=== PATIENT | female | born 1945 | race Caucasian/White ===

== ENCOUNTER → 2017-09-29 | Outpatient (CLI) | payer MEDICARE, OTHER ==
[~2017-09-29] MED LIST: ASPIR 8181 MG PO; BENAZEPRIL HCL40 MG PO; CARVEDILOL6.25 MG PO; DILTIAZEM 24HR240 M2 PO; MULTIVITAMINS1 EAC7 PO
== END ==
LOC: M.RAD 10:38
DX: Z12.31 Encounter for screening mammogram for malignant neoplasm of breast (principal)

== ENCOUNTER → 2019-01-10 | Outpatient (CLI) | payer MEDICARE, OTHER | LOC: M.MRI 10:57 | DX: M41.86 Other forms of scoliosis, lumbar region (principal); M51.36 Other intervertebral disc degeneration, lumbar region; M48.061 Spinal stenosis, lumbar region without neurogenic claudication; M12.88 Other specific arthropathies, not elsewhere classified, other specified site; M89.38 Hypertrophy of bone, other site ==

== ENCOUNTER → 2019-07-13 | Outpatient (CLI) | payer MEDICARE, OTHER | LOC: M.MRI 11:01 | DX: S83.281A Other tear of lateral meniscus, current injury, right knee, initial encounter (principal); M17.11 Unilateral primary osteoarthritis, right knee; M25.461 Effusion, right knee; M71.21 Synovial cyst of popliteal space [Baker], right knee; X58.XXXA Exposure to other specified factors, initial encounter; Y93.89 Activity, other specified; Y92.89 Other specified places as the place of occurrence of the external cause; Y99.8 Other external cause status ==

== ENCOUNTER → 2019-08-10 | Outpatient (CLI) | payer MEDICARE, OTHER | LOC: M.LAB 04:03 | DX: E87.6 Hypokalemia (principal) ==

== ENCOUNTER → 2020-01-29 | Outpatient (CLI) | payer MEDICARE, OTHER | LOC: M.RAD 09:33 | PROVIDERS: ATTEND Internal Medicine | DX: Z12.31 Encounter for screening mammogram for malignant neoplasm of breast (principal) ==

== ENCOUNTER → 2020-02-14 | Outpatient (CLI) | payer MEDICARE, OTHER | LOC: M.MRI 14:12 | PROVIDERS: ATTEND Orthopaedic Surgery | DX: S83.281A Other tear of lateral meniscus, current injury, right knee, initial encounter (principal); M17.11 Unilateral primary osteoarthritis, right knee; M71.21 Synovial cyst of popliteal space [Baker], right knee; M25.461 Effusion, right knee; X58.XXXA Exposure to other specified factors, initial encounter; Y93.89 Activity, other specified; Y92.89 Other specified places as the place of occurrence of the external cause; Y99.8 Other external cause status ==

== ENCOUNTER 2020-03-07 09:22 | Observation (INO) | payer MEDICARE, OTHER ==
[2020-03-04 11:02] LABS: ABSOLUTE BASOPHILS 0.1 thou/uL (0.0-0.2); ABSOLUTE EOSINOPHILS 0.4 thou/uL (0.0-0.7); ABSOLUTE LYMPHOCYTES 2.1 thou/uL (0.8-5.3); ABSOLUTE MONOCYTES 0.8 thou/uL (0.0-1.2); ABSOLUTE NEUTROPHILS 3.6 thou/uL (1.6-8.1); BASOPHILS 1.3 %; EOSINOPHILS 5.1 %; HEMATOCRIT 34.3 % (37.0-47.0); HEMOGLOBIN 11.6 gm/dL (12.0-15.0); LYMPHOCYTES 29.7 %; MCH 29.6 pg (26.0-34.0); MCV 87.1 fL (80.0-100.0); MONOCYTES 11.4 %; MPV 7.8 fl. (7.2-11.1); NUCLEATED RBCS 0 /100WBC; PLATELET COUNT* 352 thou/uL (150-400); POLYS 52.5 %; RBC 3.94 mil/uL (4.20-5.00); RDW-CV 12.9 % (10.5-14.5); WBC 6.9 thou/uL (4.0-11.0)
[2020-03-04 11:08] LABS: APTT 25.2 Seconds (25.0-31.3); PROTIME 10.1 Seconds (9.20-11.50)
[2020-03-04 11:14] LABS: CALCIUM 8.7 mg/dL (8.5-10.1); CREATININE 1.1 mg/dL (0.6-1.3); TOTAL BILIRUBIN 0.6 mg/dL (<0.1-1.0); TOTAL PROTEIN 7.2 g/dL (6.4-8.2)
[2020-03-04 12:13] LABS: ESR (SEDRATE) 8 mm/hr (0-30)
--- NOTE | 2020-03-04 17:15 | EKG ---
[place] [address] ELECTROCARDIOGRAM REPORT Name: SAGAR RIZZO Room: [facility]#: [id number] Admission: Attend Phys: Jeramie Koehler Discharge: Date of : 45 Date of Service: 03/04/20 1121 Report #: [id number] THIS REPORT FOR: //name// [facility] Test Date: 2020-03-04 Test Time: 11:21:47 Pat Name: SAGAR RIZZO Department: Room: Gender: F Combination Presser: : 1945 Requested By: Alva Stafford Order Number: [id number] Reading MD: Sin Oliva Measurements Intervals [place] Rate: 53 P: 67 NE: 181 QRS: 62 QRSD: 104 T: 69 QT: 461 QTc: 433 Interpretive Statements Sinus rhythm Anteroseptal infarct, age indeterminate possible No previous ECG available for comparison Electronically Signed On 03-04-2020 17:15:10 CDT by Sin Oliva [email or web address] <ELECTRONICALLY SIGNED> By: Sin Oliva MD, [facility] 03/04/20 1715 1121 1121 Sin Oliva MD, FACC /EPI
[~2020-03-07] VITALS: Ht 175.3 cm; Wt 70.8 kg
--- NOTE | ~2020-03-07 | OP ---
[address] [address] OPERATIVE REPORT Name: SAGAR RIZZO Room: [address] Jules Zapata#: [id number] Admission: 03/07/20 Attend Phys: Sanju Horner Discharge: Date of : 45 Report #: [id number] THIS REPORT FOR: //name// cc: Salvador Yepez MD, Vinod N. MD ~ CC: Alva Koehler DATE OF SERVICE: 03/07/2020 PREOPERATIVE DIAGNOSIS: Severe degenerative joint disease, right knee. POSTOPERATIVE DIAGNOSIS: Severe degenerative joint disease, right knee. Dr. Milton Powell dictating for Dr. Alva Stafford. SURGEON: Alva Stafford DO UNIFIED COMMUNICATIONS ENGINEER: Milton Powell DO SECOND INSTRUCTOR PHYSICAL: Nyasia Dukes DO PROCEDURE PERFORMED: 1. Right total knee arthroplasty utilizing the [employer] JOURNEY II system with a VISIONAIRE cutting blocks with the following implants. 2. A size 7 cemented posterior stabilized Oxinium femur, a size 6 cemented, cruciate thinned tibial tray, a size 13 mm posterior stabilized polyethylene bearing and a size 32 mm 3-peg all polyethylene cemented patella. ANESTHESIA: General with adductor canal block. ESTIMATED BLOOD LOSS: 100 mL. SPECIMENS: None. DRAINS: None. ANTIBIOTICS: Vancomycin 1 gram given IV preoperatively. TOURNIQUET: 50 minutes at 300 mmHg. DRAINS: None. CONDITION: [place] [address] OPERATIVE REPORT Name: SAGAR RIZZO Room: [address] Benny#: [id number] Admission: 03/07/20 Attend Phys: Sanju Horner Discharge: Date of : 45 Report #: [id number] DISPOSITION: PACU to medical surgical floor. GROSS FINDINGS: Intraoperative visualization of the knee demonstrated tricompartmental osteoarthritis in all 3 compartments with eburnated bone, periarticular osteophytes, hypertrophic synovitis and effusion. INDICATIONS FOR PROCEDURE: The patient is a pleasant 74-year-old female who has had ongoing right knee pain that has been exacerbated with standing from a seated position, walking for prolonged periods of time, going up and down stairs which has been refractory to conservative measures of rest, ice, splints, anti-inflammatories, activity modification, corticosteroid injections and home physical therapy exercises. She was subsequently diagnosed with right knee severe degenerative joint disease, recommended to undergo right total knee arthroplasty. Therefore, the risks, benefits, treatment options, alternatives, and indications were discussed with the patient. Risks include but are not limited to damage to surrounding neurovascular structures, continued pain, continued bleeding, need for repeat surgery, wound dehiscence, infection, DVT, PE, as well as inherent complications of anesthesia. The patient understood these risks and wishes to proceed with surgery. DESCRIPTION OF PROCEDURE: The patient was seen in the preoperative holding area where consent was obtained and signed. Right lower extremity was marked with initials and transferred back to the operative suite and placed supine on the operating room table. She was given the benefit of general anesthetic and then a well-padded tourniquet was applied to the right upper thigh. All bony prominences were then well padded. Right lower extremity was then sterilely prepped utilizing Hibiclens scrub followed by alcohol rinse and ChloraPrep x 2 and then draped free in a normal sterile fashion. The right lower extremity was then placed into a well-padded [facility] leg positioner. Timeout was then held, indicating appropriate patient, procedure to be performed, operative site, operative surgeon, preoperative antibiotics and all in attendance were in agreement. Next, a midline skin incision was made with a 20-blade scalpel through skin and subcutaneous tissues down to the level of the capsule. At which point, a second 10-blade scalpel was then used to make a standard medial parapatellar arthrotomy with development of medial sleeve. The knee was then hyperflexed and patella everted. Anterior and posterior cruciate ligament as well as medial and lateral meniscus were then subsequently excised, as well as some of the infrapatellar fat pad enough to provide adequate visualization, as well there was a subsequent [place] cyst that was subsequently decompressed. The knee was then hyperflexed to 110 degrees and then the distal femur. A CT-guided VISIONAIRE cutting block was then placed in appropriate position with good fit and was bend in appropriate position. The cutting block was for a size 7 right femur and then cut was then made to the appropriate capture block. Next, the 4-in-1 cutting block was then malleted into appropriate external rotation drilled holes and then sequential cuts were then made through the distal femur, 5-in-1 cutting block. Followed by excess bone was then subsequently removed. [address] [address] OPERATIVE REPORT Name: SAGAR RIZZO Room: [address] Jules JohnstonR.#: [id number] Admission: 03/07/20 Attend Phys: Sanju Horner Discharge: Date of : 45 Report #: [id number] Next, posterior osteophytes were then subsequently removed at this time, as well as remainder of the medial and lateral meniscus. Next, attention was directed to the tibia where the CT-guided tibial cutting block was placed in appropriate position and pinned in appropriate position. Next, tibial cut was then performed through the captured block with care to protect the medial and lateral collateral ligament structures as well as posterior capsule. Next, tibial bone graft was then subsequently removed and the knee was then brought out to full extension and resection blocks were then placed into position with a size 12, demonstrating full extension as well as full flexion and symmetric medial and lateral gaps. Next, spacer block was removed. Knee was then hyperflexed again and the size 6 trial tibia was then placed in appropriate position and pinned in appropriate position. Size 7 femur was then placed under the distal aspect of the femur, pinned into position and then the posterior stabilized box was then prepared utilizing the appropriate guide reamer and box osteotome, followed by excess bone was removed and the trial box was then placed in appropriate position and malleted into position. Next, multiple spacer bearings were then trialed and a size 13 provided adequate stability to medial and lateral structures with symmetric gaps as well as full extension and full range of motion to 130 degrees with less than 5 mm of anteroposterior excursion and mid flexion. At which point, the knee was brought into full extension and patella was then cut in a freehand fashion and then was subsequently sized to a 32 mm in diameter and then a 32 mm 3-peg drill guide was then placed in position and then drilled. Next, trial patellar button was placed into position. Knee was taken through range of motion with excellent tracking of the patella within the trochlear groove. Next, all trial components were then subsequently removed and all cut bony surfaces were thoroughly irrigated with Pulsavac lavage. Two bags of Sarah Palacos cement were then mixed on the back table, with a small amount placed on the backside of the implants and the cement was then pressurized into the interstices of the tibia, distal femur and patellar cuts. Followed by, final implants were malleted into position, well seated and excess cement was subsequently removed. A trial 13 spacer bearing was then placed in appropriate position. The knee was brought into full extension and cement was allowed to harden. Pain cocktail was then injected into the medial and lateral periosteal structures as well as the posterior capsule. Once cement was hardened, final trial was performed with the 13 bearing, determined to provide adequate stability and therefore, the knee was fully flexed, trial bearing was removed. Posterior capsule was then burned with electrocautery and then the final 13 bearing was malleted into appropriate position on a cleansed and dried tray. Knee was then brought into 60 degrees of flexion and then the knee was then thoroughly irrigated with Pulsavac again, and then quads capsule closed with #1 Vicryl in [id number] interrupted fashion followed by #1 running Stratafix. Superficial capsule was then thoroughly irrigated as well as subcutaneous tissues again with Pulsavac and then skin was then closed utilizing 2-0 Vicryl in simple interrupted subcuticular stitches, followed by running 3-0 Monocryl and skin glue. Sterile dressing of Mepilex and MICHAEL hose were then applied. Prior to quad closure, tourniquet was released at approximately 60 [place] [address] OPERATIVE REPORT Name: SAGAR RIZZO Room: [facility] Jules Zapata#: [id number] Admission: 03/07/20 Attend Phys: Sanju Horner Discharge: Date of : 45 Report #: [id number] hemostasis was obtained with direct pressure and electrocautery. Sponge and needle counts were correct x [address] Stafford was present for all critical aspects of the case. The patient was then transferred back to PACU in normal stable condition. PQRS REQUIREMENTS: The patient was given one dose of antibiotics within 30 minutes prior to incision and will receive 2 more doses postoperatively, not to exceed 23 hours. The patient will be provided Eliquis 2.5 mg b.i.d. to be taken for 14 days, followed by aspirin 325 b.i.d. for another 4 weeks as well as a thigh high MICHAEL deya and SCDs. The patient will be enrolled in early ambulation program and will receive followup in approximately 2 weeks. By: [id number] Stafford DO /desi
[~2020-03-07 09:22] MED LIST changes: +METOPROLOL SUC200 MG PO; +NORVASC5 MG PO; +TRIAMTERENE-HC1 EAC2 PO
--- NOTE | 2020-03-07 18:50 | NUR ---
PATIENT ARRIVED TO UNIT AT 1530. ALERT AND ORIENTED X4. VSS ON 3 LITERS. FLUIDS INFUSED ORDERED. ORAL PAIN MEDICATION STARTED. NO COMPLAINTS FROMT HE PATIENT. FALL PRECAUTIONS IN PLACE. CALL LIGHT WITHIN REACH. HOURLY ROUNDS MADE. WILL CONTINUE PLAN OF CARE.
[2020-03-07 19:48] VITALS: BP 133/46
[2020-03-08] VITALS (8 sets, daily range): BP systolic 137–144; BP diastolic 46–69
[2020-03-08 03:58] LABS: HEMATOCRIT 28.8 % (37.0-47.0); HEMOGLOBIN 9.8 gm/dL (12.0-15.0)
--- NOTE | 2020-03-08 06:09 | NUR ---
PATIENT IS PLEASANT ALERT AND ORIENTED READY FOR D/C TODAY. PAIN IS AT 7/10 LAST ASSESSMENT. SHE WAS GIVEN 10 MG OXY. POLAR PACK/MICHAEL IN PLACE. SHE IS AMBULATING WELL WITH A WALKER TO RESTROOM. ON 3L-NC. WILL CONTINUE TO FOLLOW PLAN OF CARE.
[2020-03-08] MEDS ORDERED: ELIQUIS5 MG PO (09:54)
[2020-03-08] MEDS ORDERED: OXYCODONE HCL 55 MG PO (09:54)
--- NOTE | 2020-03-08 15:29 | NUR ---
PATIENT REFUSED HOME HEALTH SERVICES. WANTS TO DO OUTPATIENT PHYSICAL THERAPY IN CLINICAL SETTING.
--- NOTE | 2020-03-08 16:26 | NUR ---
PATIENT DISCHARGED FROM UNIT AT 1610. ALERT AND ORIENTED X 4. VITAL SIGNS STABLE ON ROOM AIR. AFEBRILE. IV DISCONTINUED. PAIN BEING MANAGED WITH PO MEDICATION. NAUSEA MANAGED WITH IV MEDICATION. MEDICATION INFORMATION, SCRIPTS, AND DISCHARGE INSTRUCTIONS GIVEN TO PATIENT. LEFT WITH ALL BELONGINGS. PATIENT LEFT WITH [id number] VIA CAR.
== END 2020-03-08 17:08 | disposition home or self-care (01) ==
LOC: M.PRE 09:22 → M.TBA 11:06 → M.ORTHSURG 15:30 → M.PRE 16:54 → M.ORTHSURG 03-08 17:08
PROVIDERS: Orthopaedic Surgery; ADMIT Internal Medicine; ATTEND Internal Medicine
DX: U07.1 COVID-19 (principal); M17.11 Unilateral primary osteoarthritis, right knee; I10 Essential (primary) hypertension; Z79.899 Other long term (current) drug therapy